=== PATIENT | male | born 1995 ===

== ENCOUNTER 2017-07-29 11:10 | Emergency (ER) | payer SELFPAY ==
[2017-07-29 11:14] VITALS: BP 144/73; PULSE 68; RESP 18; TEMP 98.3; O2SAT 97
[2017-07-29] MEDS ORDERED: Bacitracin 500 Units/gm Oint Foilpak UD TOP ONE (11:36)
[2017-07-29] MEDS ORDERED: Lidocaine 2% Inj (20ml) INFIL ONE (11:36)
[2017-07-29] MEDS ORDERED: Bacitracin Ointment 30 GM TUBE TOP STA (11:36)
--- NOTE | 2017-07-29 11:42 | C.PDOC ---
History Of Present Illness 22 y/o male presents complaining of a laceration to the right 3rd digit, sustained just prior to arrival. States he was using a knife to fix a rim on car and accidentally cut himself. Denies associated numbness or tingling. Tetanus is not up to date. PMD: None Time Seen by Provider: 07/29/17 11:31 Chief Complaint (Nursing): Upper Extremity Problem/Injury History Per: Patient History/Exam Limitations: no limitations Onset/Duration Of Symptoms: Days (x1) Past Medical History Reviewed: Historical Data, Nursing Documentation, Vital Signs Vital Signs: Last Vital Signs Temp 98.3 F 07/29/17 11:12 Pulse 68 07/29/17 11:12 Resp 18 07/29/17 11:12 BP 144/73 07/29/17 11:12 Pulse Ox 97 07/29/17 12:09 - Medical History PMH: No Chronic Diseases Family History: States: No Known Family Hx - Social History Hx Alcohol Use: No Hx Substance Use: Yes (socially) - Immunization History Hx Tetanus Toxoid Vaccination: No Hx Influenza Vaccination: No Review Of Systems Except As Marked, All Systems Reviewed And Found Negative. Skin: Positive for: Lesions (to right 3rd digit) Neurological: Negative for: Numbness (and tingling) Physical Exam - Physical Exam Appears: Non-toxic, No Acute Distress Skin: Normal Color, Warm, Dry Head: Atraumatic, Normacephalic Eye(s): bilateral: Normal Inspection, EOMI Nose: Normal Oral Mucosa: Moist Neck: Normal, Normal ROM, Supple Chest: Symmetrical Respiratory: No Accessory Muscle Use Extremity: Normal ROM, Capillary Refill (<2 sec), Other (2.5 cm laceration to the dorsal aspect of the right 3rd digit, just distal to PIP. 2 cm abrasion to the radial aspect of right 2nd digit) Pulses: Left Radial: Normal, Right Radial: Normal Neurological/Psych: Oriented x3, Normal Speech, Other (No focal deficits) ED Course And Treatment O2 Sat by Pulse Oximetry: 97 (RA) Pulse Ox Interpretation: Normal Progress Note: Offered XR , pt refused. Patient given tetanus booster in ER. Ordered Lidocaine 2% for laceration repair, performed without difficulty. Bacitracin applied to wound. Sterile dressing and finger splint applied. Wound care instructions discussed w/ patient and wound check in 2 days. Laceration - Laceration Repair Laceration to right 3rd digit Wound Length (In cm): 2.5 Description Of Wound: Irregular Wound Cleansed With: Betadine, Sterile Saline Anesthesia: Lidocaine 2% Wound Examination: Irrigated With Saline, No FB With Wound Exploration, No Tendon Injury With Wound Exploration Wound Closure: Suture (5:0 Nylon x3) Suture Technique And Material Used: Interrupted Wound Complexity: Simple Disposition Counseled Patient/Family Regarding: Diagnosis, Need For Followup - Disposition Disposition: HOME/ ROUTINE Disposition Time: 12:05 Condition: STABLE Additional Instructions: Keep area clean and dry. Watch for signs of infection including redness, swelling or discharge. Suture removal in 7-10 days. Instructions: Finger Laceration (ED) Forms: [facility] ([place]), Work Excuse - Clinical Impression Clinical Impression: Finger laceration - PA / EXPLOSIVE MAN / Resident Statement MD/DO has reviewed & agrees with the documentation as recorded. - Scribe Statement The provider has reviewed the documentation as recorded by the Scribe (Jessica Stack) All medical record entries made by the Scribe were at my direction and personally dictated by me. I have reviewed the chart and agree that the record accurately reflects my personal performance of the history, physical exam, medical decision making, and the department course for this patient. I have also personally directed, reviewed, and agree with the discharge instructions and disposition.
[2017-07-29] MEDS ORDERED: Lidocaine 2% Inj (20ml) ONE (11:46)
[2017-07-29] MEDS ORDERED: Bacitracin 500 Units/gm Oint Foilpak UD ONE (11:49)
== END 2017-07-29 12:20 | disposition home or self-care (01) ==
LOC: C.ER 11:10
DX: S61.212A Laceration without foreign body of right middle finger without damage to nail, initial encounter (principal); W26.0XXA Contact with knife, initial encounter; Y92.89 Other specified places as the place of occurrence of the external cause; Z23 Encounter for immunization